=== PATIENT | male | born 1960 | race Caucasian/White ===

== ENCOUNTER 2017-08-28 10:02 | Emergency (ER) | payer OTHER ==
[2017-08-28] MEDS: DIPHTH,PERTUSS(ACELL),TET TOX 0.5 ML DISP.SYRIN. VAX IM (11:19)
== END 2017-08-28 12:26 | disposition home or self-care (01) ==
LOC: ER 10:02
DX: S50.02XA Contusion of left elbow, initial encounter (principal); S90.01XA Contusion of right ankle, initial encounter; J44.9 Chronic obstructive pulmonary disease, unspecified; W11.XXXA Fall on and from ladder, initial encounter; Y93.9 Activity, unspecified; Y99.8 Other external cause status; Y92.89 Other specified places as the place of occurrence of the external cause
CPT/HCPCS: 72220; 73080; 73610; 90471; 90715; 99284-25